=== PATIENT | female | born 1950 | race African-American/Black ===

== ENCOUNTER 2017-03-10 15:58 | Emergency (ER) | payer MEDICARE ==
[~2017-03-10] VITALS: Ht 160 cm; Wt 95.7 kg
[~2017-03-10 15:58] MED LIST: ALLOPURINOL 30300 M1 PO; ALLOPURINOL 30300 M2 PO; ALPHAGAN P10 ML; BENTYL10 MG; BENTYL10 MG PO; CIPROFLOXACIN500 M1 PO; COZAAR 50 MG TA50 M2 PO; COZAAR100 MG PO; FERRO-TIME325 MG; FLEXERIL PO; GLYBURIDE 5 MG T5 M1 PO; HYDROCHLOROTHIA25 M1; HYDROCHLOROTHIA25 M2 PO; LASIX 40 MG TAB40 M2 PO; MEDROLDOSEPACK PO; MOBIC15 MG; NAPROSYN500 MG PO; PROAIR HFA8.5 GM; PROAIR HFA8.5 GM INH; SIMVASTATIN10 MG; TRAVATAN Z5 ML; VICOPROFEN 2001 EACH PO; XANAX 0.25 MG0.25 MG; XANAX 0.25 MG0.25 MG PO; ZOCOR 10 MG TAB10 M1 PO
[2017-03-10] MEDS ORDERED: AUGMENTIN 875-1 EACH PO (16:30)
[2017-03-10] MEDS ORDERED: VENTOLIN HFA 1818 GM INH (16:30)
[2017-03-10 16:55] VITALS: BP 226/119
== END 2017-03-10 16:55 | disposition home or self-care (01) ==
LOC: M.ERS 15:58
DX: J32.0 Chronic maxillary sinusitis (principal); J06.9 Acute upper respiratory infection, unspecified; J45.909 Unspecified asthma, uncomplicated; E11.9 Type 2 diabetes mellitus without complications; I10 Essential (primary) hypertension; E78.00 Pure hypercholesterolemia, unspecified; Z90.711 Acquired absence of uterus with remaining cervical stump; Z90.49 Acquired absence of other specified parts of digestive tract; Z88.5 Allergy status to narcotic agent; Z88.1 Allergy status to other antibiotic agents; Z88.8 Allergy status to other drugs, medicaments and biological substances; Z98.890 Other specified postprocedural states

== ENCOUNTER 2017-06-03 17:37 | Emergency (ER) | payer MEDICARE ==
[~2017-06-03] VITALS: Ht 160 cm; Wt 137.9 kg
[~2017-06-03 17:37] MED LIST changes: +AUGMENTIN 875-1 EACH PO; +VENTOLIN HFA 1818 GM INH
[2017-06-03] MEDS ORDERED: NOVOLOG100 UNIT/1 SUBQ (18:04)
[2017-06-03] MEDS ORDERED: LANTUS100 UNIT/M SUBQ (18:04)
[2017-06-03 18:26] LABS: ABSOLUTE EOSINOPHILS 0.1 thou/uL (0.0-0.7); ABSOLUTE LYMPHOCYTES 1.8 thou/uL (0.8-5.3); ABSOLUTE MONOCYTES 0.7 thou/uL (0.0-1.2); ABSOLUTE NEUTROPHILS 3.2 thou/uL (1.6-8.1); BASOPHILS 0.8 %; EOSINOPHILS 1.5 %; HEMATOCRIT 35.2 % (37.0-47.0); HEMOGLOBIN 11.3 gm/dL (12.0-15.0); LYMPHOCYTES 31.4 %; MCH 26.7 pg (26.0-34.0); MCHC 32.2 g/dL (28.0-37.0); MONOCYTES 11.1 %; MPV 9.1 fl. (7.2-11.1); NUCLEATED RBCS 0 /100WBC; PLATELET COUNT* 193 thou/uL (150-400); POLYS 55.2 %; RBC 4.23 mil/uL (4.20-5.00); WBC 5.9 thou/uL (4.0-11.0)
[2017-06-03 18:35] LABS: ANION GAP 7 mmol/L (7-16); BUN 14 mg/dL (7-18); CALCIUM 8.8 mg/dL (8.5-10.1); CHLORIDE 107 mmol/L (98-107); CO2 29 mmol/L (21-32); CREATININE 1.1 mg/dL (0.6-1.3); GLUCOSE 158 mg/dL (70-99); POTASSIUM 3.7 mmol/L (3.5-5.1); SODIUM 143 mmol/L (136-145)
[2017-06-03 18:46] LABS: ALBUMIN 3.6 g/dL (3.4-5.0); ALKALINE PHOSPHATASE 117 U/L (46-116); NT-PRO BRAIN NAT PEPTIDE 538 pg/mL (<300); SGOT 15 U/L (15-37); SGPT 22 U/L (30-65); TOTAL BILIRUBIN 0.5 mg/dL (<0.1-1.0); TROPONIN-I LEVEL <0.06 ng/mL (<0.06)
[2017-06-03] MEDS ORDERED: ACETAMINOPHEN-1 EAC1 PO (20:47)
[2017-06-03] MEDS ORDERED: CLONIDINE HCL0.1 MG PO (20:47)
[2017-06-03 21:24] VITALS: BP 175/80
--- NOTE | 2017-06-04 15:23 | EKG ---
[place] [address] ELECTROCARDIOGRAM REPORT Name: VUEVGENYY Jimenez Room: [facility]#: [id number] Admission: 06/03/17 Attend Phys: Discharge: 06/03/17 Date of : 48 Report #: [id number] THIS REPORT FOR: //name// [place] [facility] Test Date: 2017-06-03 Test Time: 18:31:30 Pat Name: NATALY VU Department: Room: Gender: F Solar Technician: Kapil CHI : 1950 Requested By: Isabel Hernandez Order Number: [id number] MD: Abimael Shoemaker Measurements Intervals [place] Rate: 73 P: 50 GA: 152 QRS: 3 QRSD: 91 T: 158 QT: 441 QTc: 486 Interpretive Statements Sinus rhythm Probable left atrial enlargement LVH with secondary repolarization abnormality Borderline prolonged QT interval Compared to ECG 04/17/2014 14:23:34 Sinus tachycardia no longer present Electronically Signed On 06-04-2017 15:23:14 CDT by Abimael Shoemaker [email or web address] <ELECTRONICALLY SIGNED> By: Abimael Shoemaker MD, [facility] 06/04/17 1523 1831 183 Abimael Shoemaker MD, [facility] /EPI
== END 2017-06-03 21:25 | disposition home or self-care (01) ==
LOC: M.ERS 17:37
PROVIDERS: Nurse Practitioner Family
DX: R06.00 Dyspnea, unspecified (principal); I10 Essential (primary) hypertension; M25.561 Pain in right knee; J45.909 Unspecified asthma, uncomplicated; E11.9 Type 2 diabetes mellitus without complications; G89.29 Other chronic pain; E78.00 Pure hypercholesterolemia, unspecified; Z90.49 Acquired absence of other specified parts of digestive tract; Z90.710 Acquired absence of both cervix and uterus; Z88.1 Allergy status to other antibiotic agents; Z88.5 Allergy status to narcotic agent

== ENCOUNTER 2018-02-24 21:23 | Emergency (ER) | payer MEDICARE ==
[~2018-02-24] VITALS: Ht 160 cm; Wt 142.2 kg
[~2018-02-24 21:23] MED LIST changes: +ACETAMINOPHEN-1 EAC1 PO; +CLONIDINE HCL0.1 MG PO; +LANTUS100 UNIT/M SUBQ; +NOVOLOG100 UNIT/1 SUBQ
[2018-02-24 22:18] LABS: ABSOLUTE BASOPHILS 0.1 thou/uL (0.0-0.2); ABSOLUTE EOSINOPHILS 0.1 thou/uL (0.0-0.7); ABSOLUTE LYMPHOCYTES 1.9 thou/uL (0.8-5.3); ABSOLUTE MONOCYTES 0.8 thou/uL (0.0-1.2); ABSOLUTE NEUTROPHILS 5.8 thou/uL (1.6-8.1); BASOPHILS 0.6 %; EOSINOPHILS 1.3 %; HEMATOCRIT 33.6 % (37.0-47.0); HEMOGLOBIN 10.7 gm/dL (12.0-15.0); LYMPHOCYTES 21.8 %; MCV 87.6 fL (80.0-100.0); MONOCYTES 9.5 %; MPV 8.9 fl. (7.2-11.1); NUCLEATED RBCS 0 /100WBC; PLATELET COUNT* 204 thou/uL (150-400); POLYS 66.8 %; RBC 3.83 mil/uL (4.20-5.00); RDW-CV 15.7 % (10.5-14.5); WBC 8.6 thou/uL (4.0-11.0)
[2018-02-24] MEDS ORDERED: KEFLEX500 M1 PO (23:05)
[2018-02-24] MEDS ORDERED: HYDROCORTISONE-28 GM TOP (23:05)
[2018-02-24 23:30] VITALS: BP 206/85
== END 2018-02-24 23:30 | disposition home or self-care (01) ==
LOC: M.ERS 21:23
PROVIDERS: Nurse Practitioner Family
DX: I89.0 Lymphedema, not elsewhere classified (principal); J45.909 Unspecified asthma, uncomplicated; E11.9 Type 2 diabetes mellitus without complications; E66.9 Obesity, unspecified; I10 Essential (primary) hypertension; E78.00 Pure hypercholesterolemia, unspecified; G89.29 Other chronic pain; M54.5 Low back pain; Z88.1 Allergy status to other antibiotic agents; Z88.6 Allergy status to analgesic agent; Z88.8 Allergy status to other drugs, medicaments and biological substances; Z90.49 Acquired absence of other specified parts of digestive tract; Z68.43 Body mass index [BMI] 50.0-59.9, adult; Z90.711 Acquired absence of uterus with remaining cervical stump

== ENCOUNTER → 2018-02-27 | Outpatient (CLI) | payer MEDICARE ==
[~2018-02-27] MED LIST changes: +HYDROCORTISONE-28 GM TOP; +KEFLEX500 M1 PO
== END ==
LOC: M.WC 02-26 09:00
DX: E11.622 Type 2 diabetes mellitus with other skin ulcer (principal); I87.333 Chronic venous hypertension (idiopathic) with ulcer and inflammation of bilateral lower extremity; L97.822 Non-pressure chronic ulcer of other part of left lower leg with fat layer exposed; L97.812 Non-pressure chronic ulcer of other part of right lower leg with fat layer exposed; L97.212 Non-pressure chronic ulcer of right calf with fat layer exposed; E11.65 Type 2 diabetes mellitus with hyperglycemia; E11.39 Type 2 diabetes mellitus with other diabetic ophthalmic complication; H40.9 Unspecified glaucoma; E78.00 Pure hypercholesterolemia, unspecified; E66.9 Obesity, unspecified; E78.2 Mixed hyperlipidemia; I89.0 Lymphedema, not elsewhere classified; J45.909 Unspecified asthma, uncomplicated; K21.9 Gastro-esophageal reflux disease without esophagitis; F41.1 Generalized anxiety disorder; Z68.43 Body mass index [BMI] 50.0-59.9, adult; Z90.710 Acquired absence of both cervix and uterus; Z79.4 Long term (current) use of insulin

== ENCOUNTER → 2018-03-07 | Outpatient (CLI) | payer MEDICARE | LOC: M.WC 04:36 | DX: E11.622 Type 2 diabetes mellitus with other skin ulcer (principal); I87.333 Chronic venous hypertension (idiopathic) with ulcer and inflammation of bilateral lower extremity; L97.812 Non-pressure chronic ulcer of other part of right lower leg with fat layer exposed; L97.212 Non-pressure chronic ulcer of right calf with fat layer exposed; L97.822 Non-pressure chronic ulcer of other part of left lower leg with fat layer exposed; E11.65 Type 2 diabetes mellitus with hyperglycemia; E11.39 Type 2 diabetes mellitus with other diabetic ophthalmic complication; H40.9 Unspecified glaucoma; E66.9 Obesity, unspecified; E78.00 Pure hypercholesterolemia, unspecified; E78.2 Mixed hyperlipidemia; I89.0 Lymphedema, not elsewhere classified; J45.909 Unspecified asthma, uncomplicated; K21.9 Gastro-esophageal reflux disease without esophagitis; F41.9 Anxiety disorder, unspecified; Z68.43 Body mass index [BMI] 50.0-59.9, adult ==

== ENCOUNTER → 2018-03-14 | Outpatient (CLI) | payer MEDICARE | LOC: M.WC 11:00 | DX: E11.622 Type 2 diabetes mellitus with other skin ulcer (principal); I87.333 Chronic venous hypertension (idiopathic) with ulcer and inflammation of bilateral lower extremity; L97.811 Non-pressure chronic ulcer of other part of right lower leg limited to breakdown of skin; L97.211 Non-pressure chronic ulcer of right calf limited to breakdown of skin; L97.821 Non-pressure chronic ulcer of other part of left lower leg limited to breakdown of skin; E11.65 Type 2 diabetes mellitus with hyperglycemia; E11.39 Type 2 diabetes mellitus with other diabetic ophthalmic complication; H40.9 Unspecified glaucoma; E78.2 Mixed hyperlipidemia; E66.9 Obesity, unspecified; E78.00 Pure hypercholesterolemia, unspecified; I89.0 Lymphedema, not elsewhere classified; I10 Essential (primary) hypertension; J45.909 Unspecified asthma, uncomplicated; K21.9 Gastro-esophageal reflux disease without esophagitis; F41.9 Anxiety disorder, unspecified; Z68.43 Body mass index [BMI] 50.0-59.9, adult ==

== ENCOUNTER → 2018-03-21 | Outpatient (CLI) | payer MEDICARE | LOC: M.WC 04:44 | DX: E11.622 Type 2 diabetes mellitus with other skin ulcer (principal); I87.333 Chronic venous hypertension (idiopathic) with ulcer and inflammation of bilateral lower extremity; L97.828 Non-pressure chronic ulcer of other part of left lower leg with other specified severity; L97.818 Non-pressure chronic ulcer of other part of right lower leg with other specified severity; E11.65 Type 2 diabetes mellitus with hyperglycemia; E11.39 Type 2 diabetes mellitus with other diabetic ophthalmic complication; H40.9 Unspecified glaucoma; E78.2 Mixed hyperlipidemia; E66.9 Obesity, unspecified; E78.00 Pure hypercholesterolemia, unspecified; I10 Essential (primary) hypertension; I89.0 Lymphedema, not elsewhere classified; J45.909 Unspecified asthma, uncomplicated; K21.9 Gastro-esophageal reflux disease without esophagitis; F41.9 Anxiety disorder, unspecified; Z68.43 Body mass index [BMI] 50.0-59.9, adult ==

== ENCOUNTER 2018-04-10 19:21 | Emergency (ER) | payer MEDICARE ==
[~2018-04-10] VITALS: Ht 157.5 cm; Wt 142.4 kg
[2018-04-10] MEDS ORDERED: VENTOLIN HFA 1818 GM INH (19:42)
[2018-04-10] MEDS ORDERED: ZPAK PO (19:42)
[2018-04-10] MEDS ORDERED: PREDNISONE 20 M20 M1 PO (19:42)
[2018-04-10] MEDS ORDERED: PROMETH-CODEIN 65 ML PO (19:49)
[2018-04-10 20:15] VITALS: BP 263/134
--- NOTE | 2018-04-11 09:33 | EKG ---
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[place] : 1950 Requested By: Timi Hines Order Number: [id number] [id number] MD: Preet Duarte Measurements Intervals [place] Rate: 92 P: 160 FL: 134 QRS: -19 QRSD: 90 T: 155 QT: 374 QTc: 463 Interpretive Statements Sinus or ectopic atrial rhythm Probable left atrial enlargement LVH with secondary repolarization abnormality Compared to ECG 06/03/2017 18:31:30 Ectopic atrial rhythm now present Sinus rhythm no longer present Electronically Signed On 04-11-2018 9:33:38 [employer] HE[employer] OPER[employer] by Preet Duarte [email or web address] <ELECTRONICALLY SIGNED> By: Preet Duarte MD, [facility] 04/11/18 0933 33 33 Preet Duarte MD, [facility] /EPI
== END 2018-04-10 20:55 | disposition home or self-care (01) ==
LOC: M.ERS 19:21
DX: J40 Bronchitis, not specified as acute or chronic (principal); I10 Essential (primary) hypertension; E11.9 Type 2 diabetes mellitus without complications; E78.00 Pure hypercholesterolemia, unspecified; M54.5 Low back pain; G89.29 Other chronic pain; Z90.711 Acquired absence of uterus with remaining cervical stump; Z88.8 Allergy status to other drugs, medicaments and biological substances; Z88.5 Allergy status to narcotic agent; Z88.1 Allergy status to other antibiotic agents; Z90.89 Acquired absence of other organs; Z90.49 Acquired absence of other specified parts of digestive tract; Z79.4 Long term (current) use of insulin

== ENCOUNTER → 2018-08-15 | Outpatient (CLI) | payer MEDICARE ==
[~2018-08-15] MED LIST changes: +PREDNISONE 20 M20 M1 PO; +PROMETH-CODEIN 65 ML PO; +ZPAK PO
== END ==
LOC: M.WC 08:00
DX: E11.622 Type 2 diabetes mellitus with other skin ulcer (principal); I87.313 Chronic venous hypertension (idiopathic) with ulcer of bilateral lower extremity; L97.822 Non-pressure chronic ulcer of other part of left lower leg with fat layer exposed; L97.812 Non-pressure chronic ulcer of other part of right lower leg with fat layer exposed; E11.39 Type 2 diabetes mellitus with other diabetic ophthalmic complication; H40.9 Unspecified glaucoma; E66.9 Obesity, unspecified; E78.00 Pure hypercholesterolemia, unspecified; I89.0 Lymphedema, not elsewhere classified; I10 Essential (primary) hypertension; J45.909 Unspecified asthma, uncomplicated; K21.9 Gastro-esophageal reflux disease without esophagitis; F41.9 Anxiety disorder, unspecified; Z79.4 Long term (current) use of insulin; Z68.42 Body mass index [BMI] 45.0-49.9, adult; Z90.710 Acquired absence of both cervix and uterus; Z90.49 Acquired absence of other specified parts of digestive tract

== ENCOUNTER → 2018-10-06 | Outpatient (CLI) | payer MEDICARE | LOC: M.WC 01:38 | DX: E11.622 Type 2 diabetes mellitus with other skin ulcer (principal); I87.312 Chronic venous hypertension (idiopathic) with ulcer of left lower extremity; L97.822 Non-pressure chronic ulcer of other part of left lower leg with fat layer exposed; I89.0 Lymphedema, not elsewhere classified; E11.39 Type 2 diabetes mellitus with other diabetic ophthalmic complication; H40.9 Unspecified glaucoma; E78.00 Pure hypercholesterolemia, unspecified; E66.9 Obesity, unspecified; I10 Essential (primary) hypertension; J45.909 Unspecified asthma, uncomplicated; Z68.43 Body mass index [BMI] 50.0-59.9, adult ==

== ENCOUNTER 2020-03-11 01:57 | Emergency (ER) | payer OTHER ==
[~2020-03-11] VITALS: Ht 160 cm; Wt 111.1 kg
[2020-03-11] MEDS ORDERED: ALLOPURINOL 10100 M3 PO (02:27)
[2020-03-11] MEDS ORDERED: VITAMIN D310 MC2 PO (02:29)
[2020-03-11] MEDS ORDERED: LABETALOL HCL100 MG PO (02:30)
[2020-03-11] MEDS ORDERED: PREDNISONE50 MG PO (03:57)
[2020-03-11] MEDS ORDERED: OXYCODON-ACETA1 EAC1 PO (03:57)
[2020-03-11] MEDS ORDERED: FLEXERIL PO (03:57)
[2020-03-11 04:04] VITALS: BP 175/86
== END 2020-03-11 04:04 | disposition home or self-care (01) ==
LOC: M.ERS 01:57
DX: M54.12 Radiculopathy, cervical region (principal); J45.909 Unspecified asthma, uncomplicated; E11.9 Type 2 diabetes mellitus without complications; E66.9 Obesity, unspecified; I10 Essential (primary) hypertension; E78.00 Pure hypercholesterolemia, unspecified; Z90.711 Acquired absence of uterus with remaining cervical stump; Z90.89 Acquired absence of other organs; Z90.49 Acquired absence of other specified parts of digestive tract; Z79.899 Other long term (current) drug therapy; Z79.4 Long term (current) use of insulin; Z88.8 Allergy status to other drugs, medicaments and biological substances; Z88.5 Allergy status to narcotic agent; Z88.1 Allergy status to other antibiotic agents; Z68.41 Body mass index [BMI] 40.0-44.9, adult